=== PATIENT | male | born 1940 | race Caucasian/White ===

== ENCOUNTER 2016-06-14 06:50 | Day surgery (SDC) | payer MEDICARE ==
--- NOTE | ~2016-06-14 | EGD ---
EGD REPORT [facility] [address] [address] NAME: TANO ACUNA : [birth year] STATUS : REG [facility]#: [id number] AGE: 75 ADM/REG DATE : 06/14/16 MR#: [id number] REPORT SERV DATE: 06/14/16 DICTATED BY: JOSUE GONZALEZ DATE: 06/14/16 REPORT STATUS : Draft [facility]: [facility] DATE: 06/14/16 Endoscopy Center Patient Name: Tano Acuna Date of : 1940 Attending MD: JOSUE GONZALEZ MD Procedure Date No Time: 06/14/2016 Procedure: Colonoscopy Indications: High risk colon cancer surveillance: Personal history of colonic polyps, Last colonoscopy 1 year ago Referring MD: Ella YANG II Medicines: See the Anesthesia note for documentation of the administered medications Complications: No immediate complications. Procedure: Pre-Anesthesia Assessment: - ASA Grade Assessment: III - A patient with severe systemic disease. After I obtained informed consent, the scope was passed under direct vision. Throughout the procedure, the patient's blood pressure, pulse, and oxygen saturations were monitored continuously. The CF [id number] was introduced through the anus and advanced to the cecum, identified by appendiceal orifice and ileocecal valve. The colonoscopy was performed without difficulty. The patient tolerated the procedure well. The quality of the bowel preparation was adequate. Findings: The perianal and digital rectal examinations were normal. No polyp seen in sigmoid at prior area of spot marking Large flat proximal transverse polyp (2-4 cm), Biopsies were taken with a cold forceps for histology. Area was successfully injected with Spot (carbon black) for tattooing. NOT REMOVED A flat polyp was found in the descending colon. The polyp was 15 mm in size. The polyp was removed with a hot snare. Resection and retrieval were complete. To prevent bleeding post-intervention, one hemostatic clip was successfully placed. A flat polyp was found in the descending colon. The polyp was 10 mm in size. The polyp was removed with a hot snare. Resection and retrieval were complete. A flat polyp was found in the rectum. The polyp was 15 mm in size. The polyp was removed with a piecemeal technique using a hot snare. Resection and retrieval were complete. Impression: - No polyp seen in sigmoid at prior area of spot marking Large flat proximal transverse polyp (2-4 cm) EGD REPORT [address] [place]. [address] NAME: TANO ACUNA : [birth year] STATUS : REG [facility]#: [id number] AGE: 75 ADM/REG DATE : 06/14/16 MR#: [id number] REPORT SERV DATE: 06/14/16 DICTATED BY: JOSUE GONZALEZ DATE: 06/14/16 REPORT STATUS : Draft TRANSCRIBED BY: [employer] DATE: 06/14/16 - One 15 mm polyp in the descending colon. Resected and retrieved. Clip was placed. - One 10 mm polyp in the descending colon. Resected and retrieved. - One 15 mm polyp in the rectum. Resected and retrieved. Recommendation: - Patient has a contact number available for emergencies. The signs and symptoms of potential delayed complications were discussed with the patient. Return to normal activities tomorrow. Written discharge instructions were provided to the patient. - Regular diet. - Continue present medications. - FOR YOUR BIOPSY RESULTS: Please go to [email or web address] and register to receive your results via the portal. Your biopsy results will be posted there in about 7 to 10 days. IF you do not see result in 10 days, call office. Procedure Code(s): --- Professional --- 52418, Colonoscopy, flexible, proximal to splenic flexure; with removal of tumor(s), polyp(s), or other lesion(s) by snare technique 49747, 59, Colonoscopy, flexible, proximal to splenic flexure; with biopsy, single or multiple 35199, Colonoscopy, flexible, proximal to splenic flexure; with directed submucosal injection(s), any substance Diagnosis Code(s): --- Professional --- K62.1, Rectal polyp D12.4, Benign neoplasm of descending colon Z86.010, Personal history of colonic polyps CPT copyright 2013 [employer]. All rights reserved. The codes documented in this report are preliminary and upon exhaust and muffler fitter review may be revised to meet current compliance requirements. Josue Gonzalez MD JOSUE GONZALEZ MD 06/14/2016 8:47 AM This report has been signed electronically. Number of Addenda: 0 EGD REPORT [facility] [address] [address] NAME: TANO ACUNA : [birth year] STATUS : REG [facility]#: [id number] AGE: 75 ADM/REG DATE : 06/14/16 MR#: [id number] REPORT SERV DATE: 06/14/16 DICTATED BY: JOSUE GONZALEZ DATE: 06/14/16 REPORT STATUS : Draft TRANSCRIBED BY: [employer] DATE: 06/14/16 Note Initiated On: 06/14/2016 8:03 AM Scope Withdrawal Time 0 hours 20 minutes 31 seconds [address] [address]
[~2016-06-14 06:50] MED LIST: ADVIL PO; ALLEGRA180 PO; ASAB PO; B12; B121000P IM; CARDURA1 MG PO; CENTRUM TAB1 TAB PO; CLARIT10 PO; COZ50 PO; DIABETA5 PO; DIOV160 PO; FERGON240 MG PO; FERROUS GLUCONATE PO; FISH-EPA1000 MG PO; FOLIC PO; GLUCOTRO10 PO; HCTZ25B PO; HUMALOG SC; HUMULIN N1 ML SC; HUMULIN R1 ML SC; HYDROCHLOROT25 MG PO; HYT1 PO; KLONO1 PO; KLONO5 PO; LANTUS SC; LANTUSCART SC; LIPITOR20 PO; LORTAB10 PO; MEVACOR PO; MIRAPEX ER0.75 MG PO; MIRAPEX0.75 MG PO; MIRAPEX1 MG PO; MIRAPEX1.5 MG PO; MOBIC15 MG PO; MULTIPLE VIT PO; NEUR400 PO; NEUR600 PO; NIACIN 500 PO; NORCO1 TAB PO; NOVOLOG; NOVOLOG SC; ORAZINC110 MG PO; P10 PO; PLAVIX PO; PRAVACHOL40 MG PO; PRENATABS RX PO; PREV30 PO; PRILO PO; PROSCAR5 PO; PROVIGIL2 PO; RED YEAST RICE PO; T3 PO; TRICOR48 PO; VIT B-SIX 50 MG50 MG PO; VITAMIN B-625 MG PO; VITAMIN D31000 UNIT PO; ZANTAC150 MG PO
[2016-12-04] MEDS ORDERED: PROTONIX PO (15:46)
== END 2016-06-14 23:59 | disposition home or self-care (01) ==
LOC: DMU 06:50
PROVIDERS: Internal Medicine Gastroenterology
PROC: 0DBM8ZZ Excision of Descending Colon, Via Natural or Artificial Opening Endoscopic (ICD-10-PCS; principal; 2016-06-14 08:30)
PROC: 0DBP8ZZ Excision of Rectum, Via Natural or Artificial Opening Endoscopic (ICD-10-PCS; 2016-06-14 08:30)
DX: Z12.11 Encounter for screening for malignant neoplasm of colon (principal); K62.1 Rectal polyp; D12.4 Benign neoplasm of descending colon; E11.9 Type 2 diabetes mellitus without complications; I10 Essential (primary) hypertension; G47.33 Obstructive sleep apnea (adult) (pediatric); D64.9 Anemia, unspecified; Z86.010 Personal history of colon polyps; Z88.8 Allergy status to other drugs, medicaments and biological substances; Z91.048 Other nonmedicinal substance allergy status; Z88.5 Allergy status to narcotic agent; Z79.899 Other long term (current) drug therapy; Z79.82 Long term (current) use of aspirin; Z79.4 Long term (current) use of insulin
CPT/HCPCS: 82962; 88305; 88341; 88342

== ENCOUNTER 2016-12-05 13:17 | Day surgery (SDC) | payer MEDICARE ==
[~2016-12-05] VITALS: Ht 180.3 cm; Wt 92.5 kg
--- NOTE | ~2016-12-05 | EGD ---
EGD REPORT [facility] [address] [address] NAME: TANO MATTHEW : 38 STATUS : REG [facility]#: [id number] AGE: 76 ADM/REG DATE : 12/05/16 MR#: [id number] REPORT SERV DATE: 12/07/16 DICTATED BY: JOSUE GONZALEZ DATE: 12/07/16 REPORT STATUS : Draft [facility]ANSCRIBED BY: [facility] DATE: 12/07/16 Endoscopy Center Patient Name: Tano Matthew Date of : 1940 Attending MD: JOSUE GONZALEZ MD Procedure Date No Time: 12/05/2016 Procedure: Upper GI endoscopy Indications: Epigastric abdominal pain, Gastro-esophageal reflux disease Referring MD: Derrek Agarwal Medicines: See the Anesthesia note for documentation of the administered medications Complications: No immediate complications. Procedure: Pre-Anesthesia Assessment: - ASA Grade Assessment: III - A patient with severe systemic disease. After obtaining informed consent, the endoscope was passed under direct vision. Throughout the procedure, the patient's blood pressure, pulse, and oxygen saturations were monitored continuously. The GIF [id number] was introduced through the mouth, and advanced to the second part of duodenum. The upper GI endoscopy was accomplished without difficulty. The patient tolerated the procedure well. Findings: Mild inflammation was found in the gastric antrum. Biopsies were taken with a cold forceps for histology. Multiple small sessile polyps with were found in the duodenal bulb. Biopsies were taken with a cold forceps for histology. The cardia and gastric fundus were normal on retroflexion. A small hiatus hernia was present. Impression: - Gastritis. Biopsied. - Multiple duodenal polyps. Biopsied. - Hiatus hernia. Recommendation: - Patient has a contact number available for emergencies. The signs and symptoms of potential delayed complications were discussed with the patient. Return to normal activities tomorrow. Written discharge instructions were provided to the patient. - Regular diet. - Continue present medications. - FOR YOUR BIOPSY RESULTS: Please go to EGD REPORT [address] [address] NAME: TANO MATTHEW : 38 STATUS : REG [facility]#: [id number] AGE: 76 ADM/REG DATE : 12/05/16 MR#: [id number] REPORT SERV DATE: 12/07/16 DICTATED BY: JOSUE GONZALEZ DATE: 12/07/16 REPORT STATUS : Draft TRANSCRIBED BY: [email or web address] DATE: 12/07/16 [email or web address] and register to receive your results via the portal. Your biopsy results will be posted there in about 7 to 10 days. IF you do not see result in 10 days, call office. - Return to my office in 6 weeks. Procedure Code(s): --- Professional --- 30833, Esophagogastroduodenoscopy, flexible, transoral; with biopsy, single or multiple Diagnosis Code(s): --- Professional --- K29.70, Gastritis, unspecified, without bleeding K31.7, Polyp of stomach and duodenum K44.9, Diaphragmatic hernia without obstruction or gangrene R10.13, Epigastric pain K21.9, Gastro-esophageal reflux disease without esophagitis CPT copyright 2013 [employer]. All rights reserved. The codes documented in this report are preliminary and upon batch still operator review may be revised to meet current compliance requirements. Josue Gonzalez MD JOSUE GONZALEZ MD 12/05/2016 3:43 PM This report has been signed electronically. Number of Addenda: 0 Note Initiated On: 12/05/2016 2:43 PM Scope Withdrawal Time 0 hours 0 minutes 0 seconds [address] [place] [address]
[~2016-12-05 13:17] MED LIST changes: +PROTONIX PO
== END 2016-12-05 23:59 | disposition home health service (06) ==
LOC: DMU 13:17
PROVIDERS: Internal Medicine Gastroenterology
PROC: 0DB98ZX Excision of Duodenum, Via Natural or Artificial Opening Endoscopic, Diagnostic (ICD-10-PCS; 2016-12-05)
PROC: 0DB68ZX Excision of Stomach, Via Natural or Artificial Opening Endoscopic, Diagnostic (ICD-10-PCS; principal; 2016-12-05 15:30)
DX: K44.9 Diaphragmatic hernia without obstruction or gangrene (principal); Q43.8 Other specified congenital malformations of intestine; G47.33 Obstructive sleep apnea (adult) (pediatric); N18.9 Chronic kidney disease, unspecified; I12.9 Hypertensive chronic kidney disease with stage 1 through stage 4 chronic kidney disease, or unspecified chronic kidney disease; D63.1 Anemia in chronic kidney disease; K21.9 Gastro-esophageal reflux disease without esophagitis; E78.5 Hyperlipidemia, unspecified; E11.9 Type 2 diabetes mellitus without complications; G25.81 Restless legs syndrome; Z86.73 Personal history of transient ischemic attack (TIA), and cerebral infarction without residual deficits
CPT/HCPCS: 82962; 88305